=== PATIENT | male | born 1975 | race Caucasian/White ===

== ENCOUNTER 2025-01-08 21:17 | Emergency (ER) | payer MEDICAID, SELFPAY ==
--- NOTE | 2025-01-08 21:26 | ECG_ITS ---
Test Reason : OVERDOSE Blood Pressure : */* mmHG Vent. Rate : 52 BPM Atrial Rate : 52 BPM P-R Int : 164 ms QRS Dur : 86 ms QT Int : 482 ms P-R-T Axes : 40 7 16 degrees QTcB Int : 448 ms Sinus bradycardia Nonspecific T wave abnormality Abnormal ECG No previous ECGs available Referred By: Generic ED Physician Electronically Signed By: JOSE CARLOS IRVING
[2025-01-08 21:29] VITALS: BP 115/70; PULSE 50; O2SAT 96
[2025-01-08 21:30] VITALS: BP 92/55; PULSE 53; RESP 20; TEMP 36.9; O2SAT 99; BMI 34.1
[2025-01-08 21:43] LABS: MANUAL DIFF FLAG NO
[2025-01-08 21:44] LABS: Basophils Percent Auto 0.1 % (0-2); Eosinophils Percent Auto 0.1 % (0-4); Hematocrit 36.8 % (42.0-52.0); Hemoglobin 12.7 g/dl (14.0-18.0); Imm Gran Abs Auto 0.08 X10*3/uL (0.00-0.03); Imm Gran Pct Auto 0.7 % (0.0-0.4); Lymphocytes Percent Auto 18.2 % (20-40); Mean Corpuscular HGB Conc 34.5 g/dl (31.0-36.0); Mean Corpuscular Hemoglobin 29.1 pg (27.0-33.0); Mean Corpuscular Volume 84.4 fL (80.0-98.0); Mean Platelet Volume 11.8 fL (9.4-12.4); Monocytes Absolute Auto 0.7 X10*3/uL (0.1-1.2); Neutrophils Absolute Auto 8.4 x10*3/uL (2.0-8.3); Neutrophils Percent Auto 74.9 % (45-73); Platelet Count 234 X10*3/uL (160-400); Red Blood Count 4.36 X10*6/uL (4.60-5.80); White Blood Count 11.2 X10*3/uL (4.8-10.8)
[2025-01-08] MEDS: 0.9 % Sodium Chloride 1,000 ML 999 ML IV ×2 (21:49)
--- NOTE | 2025-01-08 21:50 | ED_ITS ---
HPI - General Adult General Chief complaint: General Medical Stated complaint: od, 4mg narcan given Time Seen by Provider: 01/08/25 21:31 History of Present Illness HPI narrative: Patient is a 49-year-old male admits to drinking alcohol. Patient was given a prescription for icy opium tincture 10 milligram/mL. He picked that up on January 03. He was prescribed 72 cc. He is supposed to take 0.6 mg orally 4 times a day. Patient was found with an empty bottle next to him. He did get into an argument with his daughter and his prior. He denies suicidal ideation. EMS/police found him unresponsive. He was given Narcan which woke him up. Patient from home. Denies any other medical issues. Related Data Allergies Allergy/AdvReac Type Severity Reaction Status Date / Time gabapentin Allergy Gastrointestinal Verified 01/08/25 21:34 Upset NSAIDS (Non-Steroidal AdvReac Difficulty Verified 01/08/25 21:34 Anti-Inflamma Breathing Review of Systems 2 Review of Systems: Positive altered mental status Yes all other systems are reviewed and are negative [facility] Past Medical History Attestation statement: The following information was validated with the patient. Social History Social History Smoked in Last 30 Days: No Use of substances other than those prescribed or required for medical reasons: No Advance Directives: No Advance Directives Information Provided: Yes Do you have a plan to hurt others: No Plan Physical Exam ED Vital Signs: Vital Signs - 24 hr 01/08/25 21:30 01/08/25 22:15 01/08/25 23:10 Temperature 98.5 F Pulse Rate 53 49 L 45 L Respiratory Rate 20 174 H 19 Blood Pressure 92/55 L 94/61 108/69 Pulse Oximetry 99 97 97 Oxygen Delivery Method Room Air Room Air Room Air 01/09/25 00:10 01/09/25 03:27 01/09/25 05:19 Temperature 98.0 F 99.1 F Pulse Rate 49 L 57 63 Respiratory Rate 16 16 11 L Blood Pressure 102/55 L 95/59 L 102/62 Pulse Oximetry 97 97 98 Oxygen Delivery Method Room Air Room Air Room Air 01/09/25 08:37 Temperature 98.2 F Pulse Rate 67 Respiratory Rate 11 L Blood Pressure 99/72 Pulse Oximetry 96 Oxygen Delivery Method Room Air BMI result Body Mass Index 34.1 Appearance: Alert. Oriented X3. No acute distress. Eyes: Pupils equal, round and reactive to light. ENT: Pharynx normal. Neck: Normal inspection. Neck supple. No lymph nodes noted. No crepitus CVS: Normal heart rate and rhythm. Pulses normal. Normal S1 and S2 Respiratory: No respiratory distress. Breath sounds normal. No Wheezing. No rales Abdomen: Soft and nontender. No rigidity. No distention. good BS x4 Skin: Skin warm and dry. Normal skin color. Normal skin turgor. Extremities: No lower extremity edema. Neurovascular intact to all extremities. No Lacerations. No Rash Neuro: Oriented X 3. No motor deficit. No sensory deficit. Moving all extermities. No slurred speech Course Reevaluation(s) Reevaluation #1: Dr. Mariee: The patient was signed out to me pending the results of a care team evaluation. The patient had apparently seemed to sustain an opioid overdose by using opium tincture that has been prescribed to help reduce his ostomy output. The patient has had a recent colostomy. The patient was medically cleared and seen by the care team. It seems as though the impression is that the patient has overdose was an accidental overdose. The patient is currently denying any intent to harm himself and has no plans to harm himself. The family seems to corroborate this. The patient was therefore cleared by the care team for discharge. The patient seems medically stable at this point. He will be advised to follow up with the his primary care doctor soon as well as his surgeon. Time: 12:35 Medications Administered Discontinued Medications Generic Name Dose Route Start Last Admin Trade Name Freq PRN Reason Stop Dose Admin Sodium Chloride 1,000 mls @ 999 mls/hr 01/08/25 21:45 01/09/25 00:13 Ns IV 01/08/25 22:45 Infused .Q1H1M MILAGROS Infusion Sodium Chloride 1,000 mls @ 999 mls/hr 01/08/25 21:45 01/09/25 00:13 Ns IV 01/08/25 22:45 Infused .Q1H1M MILAGROS Infusion Medical Decision Making Medical Decision Making MDM Narrative: Fair appearing not acute distress. Patient presented today after being found unresponsive by family. EMS gave patient a dose of Narcan which woke him up. Patient was found with a bottle of tincture of opium completely emptied after 4 days. Patient denies he used the drugs. But was found unresponsive. With a pinpoint pupil. He was placed on monitoring. Labs ordered. Will give IV fluids is blood pressure is borderline. In no acute distress. Patient medically cleared. Differential Diagnosis Differential Diagnoses: The differential diagnosis associated with the presentation includes Admission/Observation Consideration of admission/observation: Escalation of care including admission/observation considered Lab Data MDM Lab Attestation statement: I reviewed the patient's lab results. 01/08/25 21:39 01/08/25 21:39 Labs: Lab Results 01/08/25 01/08/25 01/08/25 Range/Units 21:39 22:11 23:00 WBC 11.2 H (4.8-10.8) X10*3/uL RBC 4.36 L (4.60-5.80) X10*6/uL Hgb 12.7 L (14.0-18.0) g/dl Hct 36.8 L (42.0-52.0) % MCV 84.4 (80.0-98.0) fL MCH 29.1 (27.0-33.0) pg MCHC 34.5 (31.0-36.0) g/dl RDW 15.0 (11.0-16.0) % Plt Count 234 (160-400) X10*3/uL MPV 11.8 (9.4-12.4) fL Immature Gran % (Auto) 0.7 H (0.0-0.4) % Neut % (Auto) 74.9 H (45-73) % Lymph % (Auto) 18.2 L (20-40) % [place] % (Auto) 6.0 (2-11) % Eos % (Auto) 0.1 (0-4) % Baso % (Auto) 0.1 (0-2) % Lymph # (Auto) 2.0 (1.2-4.9) X10*3/uL [place] # (Auto) 0.7 (0.1-1.2) X10*3/uL Eos # (Auto) 0.0 (0.0-0.4) X10*3/uL Baso # (Auto) 0.0 (0.0-0.2) X10*3/uL Abs Immat Gran (auto) 0.08 H (0.00-0.03) X10*3/uL Absolute Neuts (auto) 8.4 H (2.0-8.3) x10*3/uL Absolute Nucleated RBC 0.000 (0.0-0.012) X10*3/uL Nucleated RBC % (auto) 0.0 (0.0-0.2) /100WBC Sodium 137 (135-145) mmol/L Potassium 3.5 (3.3-5.1) mmol/L Chloride 102 (96-108) mmol/L Carbon Dioxide 25 (22-29) mmol/L Anion Gap 14 (12-20) BUN 9 (9-16) mg/dL Creatinine 0.74 (0.5-1.4) mg/dL Estim Creat Clear Calc 164.6 Estimated GFR > 60 POC Glucose (60-115) mg/dL Random Glucose 145 H (60-115) mg/dL Calcium 8.5 (8.4-10.2) mg/dL Total Bilirubin 0.3 (0.0-1.0) mg/dL AST 80 H (5-37) U/L ALT 78 H (0-40) U/L Alkaline Phosphatase 97 (39-117) U/L Troponin I High Sens 11.3 (<3.5-35.0) ng/L Total Protein 6.2 L (6.5-8.0) g/dL Albumin 3.3 L (3.5-5.0) g/dL Urine Opiates Screen POSITIVE H (Not Detect) Ur Buprenorphine Scrn Not Detected (Not Detect) ng/mL Ur Oxycodone Screen Not Detected (Not Detect) ng/mL Urine Methadone Screen Not Detected (Not Detect) ng/mL Urine Fentanyl Screen Not Detected (Not Detect) Ur Barbiturates Screen Not Detected (Not Detect) Ur Phencyclidine Scrn Not Detected (Not Detect) Ur Amphetamines Screen Not Detected (Not Detect) U Benzodiazepines Scrn Not Detected (Not Detect) Urine Cocaine Screen Not Detected (Not Detect) U Marijuana (THC) Screen Not Detected (Not Detect) Ethyl Alcohol < 10 mg/dL 01/09/25 Range/Units 08:41 WBC (4.8-10.8) X10*3/uL RBC (4.60-5.80) X10*6/uL Hgb (14.0-18.0) g/dl Hct (42.0-52.0) % MCV (80.0-98.0) fL MCH (27.0-33.0) pg MCHC (31.0-36.0) g/dl RDW (11.0-16.0) % Plt Count (160-400) X10*3/uL MPV (9.4-12.4) fL Immature Gran % (Auto) (0.0-0.4) % Neut % (Auto) (45-73) % Lymph % (Auto) (20-40) % Alexandria % (Auto) (2-11) % Eos % (Auto) (0-4) % Baso % (Auto) (0-2) % Lymph # (Auto) (1.2-4.9) X10*3/uL [place] # (Auto) (0.1-1.2) X10*3/uL Eos # (Auto) (0.0-0.4) X10*3/uL Baso # (Auto) (0.0-0.2) X10*3/uL Abs Immat Gran (auto) (0.00-0.03) X10*3/uL Absolute Neuts (auto) (2.0-8.3) x10*3/uL Absolute Nucleated RBC (0.0-0.012) X10*3/uL Nucleated RBC % (auto) (0.0-0.2) /100WBC Sodium (135-145) mmol/L Potassium (3.3-5.1) mmol/L Chloride (96-108) mmol/L Carbon Dioxide (22-29) mmol/L Anion Gap (12-20) BUN (9-16) mg/dL Creatinine (0.5-1.4) mg/dL Estim Creat Clear Calc Estimated GFR POC Glucose 118 H (60-115) mg/dL Random Glucose (60-115) mg/dL Calcium (8.4-10.2) mg/dL Total Bilirubin (0.0-1.0) mg/dL AST (5-37) U/L ALT (0-40) U/L Alkaline Phosphatase (39-117) U/L Troponin I High Sens (<3.5-35.0) ng/L Total Protein (6.5-8.0) g/dL Albumin (3.5-5.0) g/dL Urine Opiates Screen (Not Detect) Ur Buprenorphine Scrn (Not Detect) ng/mL Ur Oxycodone Screen (Not Detect) ng/mL Urine Methadone Screen (Not Detect) ng/mL Urine Fentanyl Screen (Not Detect) Ur Barbiturates Screen (Not Detect) Ur Phencyclidine Scrn (Not Detect) Ur Amphetamines Screen (Not Detect) U Benzodiazepines Scrn (Not Detect) Urine Cocaine Screen (Not Detect) U Marijuana (THC) Screen (Not Detect) Ethyl Alcohol mg/dL Discharge Plan Discharge Clinical Impression: Accidental overdose Patient Disposition: Home, Self-Care Additional Instructions: Please continue your medications as currently prescribed until you follow up with your regular doctor. Please call your regular doctor's office today for a prompt follow up appointment. Also stay in touch with your surgeon as needed. Return to the emergency room if significantly worse at any time. Referrals: Errol Trevino MD [Physician] - Print Language: Croatian
[2025-01-08 21:58] LABS: Alanine Aminotransferase 78 U/L (0-40); Albumin Level 3.3 g/dL (3.5-5.0); Alkaline Phosphatase 97 U/L (39-117); Anion Gap 14 (12-20); Aspartate Amino Transferase 80 U/L (5-37); Bilirubin Total 0.3 mg/dL (0.0-1.0); Blood Urea Nitrogen 9 mg/dL (9-16); Calcium 8.5 mg/dL (8.4-10.2); Carbon Dioxide 25 mmol/L (22-29); Chloride 102 mmol/L (96-108); Creatinine Clr Calc Pharmacy 164.6; Estimated Glomerular Filt Rate > 60; Glucose Random 145 mg/dL (60-115); Potassium 3.5 mmol/L (3.3-5.1); Sodium 137 mmol/L (135-145); Total Protein 6.2 g/dL (6.5-8.0)
--- NOTE | 2025-01-08 21:58 | MHC.EDTECH ---
Patient changed over belongings placed in [facility] closet shelf 3
[2025-01-08 22:05] LABS: Troponin-I High Sensitivity 11.3 ng/L (<3.5-35.0)
[2025-01-08 22:15] VITALS: BP 94/61; PULSE 49; RESP 174; O2SAT 97
[2025-01-08 22:32] LABS: Ethanol < 10 mg/dL
[2025-01-08 23:10] VITALS: BP 108/69; PULSE 45; RESP 19; O2SAT 97
[2025-01-08 23:16] LABS: Amphetamine Screen Urine Not Detected (Not Detect); Barbiturates, Urine Not Detected (Not Detect); Benzodiazepines Screen Urine Not Detected (Not Detect); Buprenorphine Scr Not Detected (Not Detect); Cannabinoid Screen Urine Not Detected (Not Detect); Cocaine Screen Urine Not Detected (Not Detect); Fentanyl, urine Not Detected (Not Detect); Methadone Screen, Urine Not Detected (Not Detect); Opiate Screen Urine POSITIVE (Not Detect); Oxycodone Screen Urine Not Detected (Not Detect); Phencyclidine Screen Urine Not Detected (Not Detect)
--- NOTE | 2025-01-08 23:32 | PC.NURSE ---
Called poison control at this time, stated only narcan and supportive care . MD boykin
--- OUTSIDE RECORDS SUMMARY | 2025-01-08 23:55 | XMS_ITS | Clinical Summary ---
Author Organization [facility] Address [address] [place] [address] Care Team Providers Care Insulation Board Head Saw Operator Name Role Phone Errol Trevino MD Primary Care Provider [phone] Allergies Active Allergy Reactions Criticality Noted Date Comments Gabapentin Unknown/Patient and Family Unable to Define Medium 05/27/2019 Causes seizures Other reaction(s): Unknown Causes seizures Nsaids Bleeding (Non-Gastrointestinal),O ther (See Comments) High 04/01/2019 Medications topiramate (TOPAMAX) 50 MG tablet Take 1 tablet (50 mg total) by mouth 2 (two) times a day. 1 9 Active OMEprazole (PriLOSEC) 40 MG capsule Take 1 capsule (40 mg total) by mouth. Active Multiple Vitamin (MULTIVITAMIN) capsule Take 1 capsule by mouth. Active tiZANidine (ZANAFLEX) 2 MG tablet Take 1 tablet (2 mg total) by mouth. 9 Active nortriptyline (PAMELOR) 10 MG capsule Take 1 capsule (10 mg total) by mouth nightly. 0 Active albuterol (PROVENTIL HFA; VENTOLIN HFA) 108 (90 Base) MCG/ACT inhaler INHALE 1 PUFF EVERY 6 HOURS NEEDED FOR SHORTNESS OF BREATH/WHEEZI NG 0 Active dicyclomine (BENTYL) 10 MG capsule TAKE ONE CAPSULE BY MOUTH THREE TIMES A DAY NEEDED 0 Active hyoscyamine (LEVBID) 0.375 MG 12 hr tablet Take 1 tablet (375 mcg total) by mouth 2 (two) times a day. 0 Active furosemide (LASIX) 20 MG tablet Take 1 tablet (20 mg total) by mouth. 1 Active diazepam (VALIUM) 5 MG tabletIndications: Anxiety due to invasive procedure Take one tab 1.5 hours prior to procedure. May repeat 30min later prn. 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 2 tablet 2 Active cholestyramine resin (QUESTRAN) 4 g packet DRINK 1 PACKET DISSOLVED IN WATER ONCE A DAY 2 Active buPROPion (WELLBUTRIN XL) 150 MG 24 hr tablet Take 1 tablet (150 mg total) by mouth every morning. 4 Active buPROPion (Wellbutrin XL) 300 MG 24 hr tablet Take 1 tablet (300 mg total) by mouth. 2 Active diphenoxylate-atro pine (LOMOTIL) 2.5-0.025 MG per tablet Take 1 tablet by mouth 3 (three) times a day. 4 Active famotidine (PEPCID) 40 MG tablet Take 1 tablet (40 mg total) by mouth 2 (two) times a day. 3 Active ondansetron (ZOFRAN) 4 MG tablet Take 1 tablet (4 mg total) by mouth 3 times daily (every 8 hours) as needed. for nausea 4 Active phentermine 30 MG capsule Take 1 capsule (30 mg total) by mouth. 3 Active HYDROcodone-acetam inophen (VICODIN) 7.5-300 MG per tablet TAKE ONE TABLET BY MOUTH EVERY 6 HOURS NEEDED FOR BACK PAIN 4 Active propranolol (INDERAL) 80 MG tablet 4 Active famotidine (PEPCID) 20 MG tablet Take 1 tablet (20 mg total) by mouth 2 (two) times a day. 4 Active LORazepam (ATIVAN) 0.5 MG tablet Take 1 tab po 1 hour before medical procedure 4 Active HYDROcodone-acetam inophen (VICODIN) 7.5-300 MG per tablet Take 1 tablet by mouth 4 times daily (every 6 hours) as needed. 4 Active metFORMIN (GLUCOPHAGE-XR) 750 MG 24 hr tablet Take 1 tablet (750 mg total) by mouth. 4 Active ondansetron (ZOFRAN) 4 MG tabletIndications: Generalized abdominal pain Take 1 tablet (4 mg total) by mouth 3 times daily (every 8 hours) as needed for nausea or vomiting. 20 tablet 1 4 Active Creon 18185-978401 units Cap DR Particles capsuleIndications :Pancreatic insufficiency TAKE ONE CAPSULE BY MOUTH THREE TIMES A DAY WITH MEALS 270 capsule 3 4 Active Slow Magnesium/Calcium 64-106 MG tablet Take 1 tablet by mouth. 4 Active spironolactone (ALDACTONE) 50 MG tablet Take 1 tablet (50 mg total) by mouth. Active Mounjaro 7.5 MG/0.5ML pen-injector Inject 1 Pen (7.5 mg total) under the skin over 7 days for 168 hours (continuous infusion). 4 Active acetaminophen-code ine (TYLENOL #4) 300-60 MG per tablet Take 1 tablet by mouth 4 times daily (every 6 hours) as needed. for pain Max Daily Amount: 4 tablets Active ivabradine (CORLANOR) 5 MG tablet Take 1 tablet (5 mg total) by mouth 2 (two) times a day with meals. Active Magnesium Cl-Calcium Carbonate 71.5-119 MG Tablet Delayed Response Take 596 mg by mouth. 4 Active ondansetron (ZOFRAN-ODT) 8 MG disintegrating tablet Take 1 tablet (8 mg total) by mouth 3 times daily (every 8 hours) as needed. 5 Active Active Problems Problem Noted Date Diagnosed Date Elevated hemoglobin A1c 10/21/2024 History of gastric bypass 10/21/2024 Obstructive sleep apnea 10/21/2024 Obesity 10/21/2024 Steatosis of liver 10/21/2024 Paroxysmal tachycardia 08/26/2024 Type 2 diabetes mellitus wit hout complication, without long-term current use of insulin 05/13/2024 Muscle cramping 02/05/2024 Injury of right shoulder 10/24/2023 Prediabetes 07/26/2023 Pancreatic insufficiency 04/05/2023 Pancreatic colipase deficiency 01/09/2023 Diarrhea 11/18/2022 Generalized abdominal pain 09/07/2022 Acute recurrent pancreatitis 04/19/2022 Intractable abdominal pain 02/23/2022 Anxiety and depression 10/25/2021 Water retention 06/09/2021 Palpitations 05/04/2021 SVT (supraventricular tachycardia) 06/03/2020 Sprain of shoulder, left 04/29/2020 Diverticulitis of large inte jared without perforation or abscess without bleeding 02/25/2020 Dyspnea on exertion 02/25/2020 Facet arthritis of lumbar region 12/16/2019 Stenosis of lateral recess of lumbar spine 12/15 Lumbosacral radiculopathy at L3 11/25/2019 History of urinary retention 10/29/2019 Right thigh pain 10/29/2019 Right upper quadrant pain 08/30/2019 Chronic sacroiliac pain 06/05/2019 History of Sim-en-Y gastric bypass 06/05/2019 Overview (10/21/2024): 2011 Karma Spinal stenosis at L4-L5 level 06/05/2019 Sacroiliitis 05/27/2019 Lumbar discogenic pain syndrome 05/27/2019 Low back pain with bilateral sciatica 04/05/2019 Resolved Problems Problem Noted Date Diagnosed Date Resolved Date Colitis 03/15/2022 11/18/2024 Encounter for general adult medical examination without abnormal findings 12/14/2020 Immunizations Immunization Administration Dates Next Due DT 09/23/2007 Influenza (AFLURIA/FLUZONE) Inactivated/Split Quadrivalent with Preservative IM 06/11/2020,07/18/2019,06/27/2018,06/10 Influenza Inactivated/Split Preservative Free IM 06/11/2020,07/18/2019,06/27/2018,06/10 Influenza Virus Trivalent Sp lit Vaccine (MDV) IM 06/11/2020,07/18/2019,06/27/2018,06/10 Influenza, Quadrivalent (FLU ARIX, AFLURIA, FLULAVAL, FLUZONE) Preservative Free IM 06/09/2021,06/11/2020,07/18/2019,06/27 Influenza, Trivalent (FLUARI X, AFLURIA, FLULAVAL, FLUZONE) Preservative Free IM 08/26/2024 Influenza, Unspecified 08/12/2022 Pneumococcal Polysaccharide 23-Valent 10/14/2019 Tdap 11/09/2017 Family History Medical History Relation Name Comments Cancer Father David Pancreatitis Father David Cancer Mother Jazmyne Colon polyps Mother Jazmyne Crohn's disease Mother Jazmyne Colon cancer Paternal Grandfather Relation Name Status Comments Father David Mother Jazmyne Paternal Grandfather Social History Tobacco Use Types Packs/Day Years Used Date Smoking Tobacco: Never Smokeless Tobacco: Never Tobacco Cessation:Counseling Given: Not Answered Alcohol Use Standard Drinks/Week Comments Yes 1 (1 standard drink = 0.6 oz pur e alcohol) socially Sex and Gender Information Value Date Recorded Sex Assigned at Male 07/09/2023 10:13 AM EDT Legal Sex Male 3:46 PM EDT Gender Identity Male 05/22/2024 10:08 AM EDT Sexual Orientation Heterosexual (straight) 07/09 10:13 AM EDT Last Filed Vital Signs Vital Sign Reading Time Taken Comments Blood Pressure 90/60 09/20/2024 8:28 AM EST Pulse 100 02/26/2024 8:32 AM EDT Temperature 37 ??C (98.6 ??F) 09/20/2024 8:28 AM EST Respiratory Rate 18 10/18/2023 9:16 AM EST Oxygen Saturation 97% 12/01/2023 2:56 PM EDT Inhaled Oxygen Concentration - - Weight 132 kg (290 lb 6.4 oz) 09/20/2024 8:28 AM EST Height 188 cm (6' 2 ) 09/20/2024 8:28 AM EST Body Mass Index 37.29 09/20/2024 8:28 AM EST Plan of Treatment Health Maintenance Due Date Last Done Comments Hepatitis C Virus Screening 1974 Creatinine with GFR 02/29/1984 Foot Exam 02/29/1984 Lipid Panel 02/29/1984 Ophthalmology Exam 02/29/1984 HIV Screening 1987 Chronic Controlled Substance Toxicology Screening 02/29/1992 Chronic Controlled Substance User PDMP Review 02/29/1992 Controlled Substance Agreeme nt Initial and Annual Review 02/29/1992 Microalbumin/Creatinine Rati o Urine 02/29/1992 Hepatitis B Vaccines (1 of 3 - 19+ 3-dose series) 1993 Pneumococcal Vaccines 50+ (2 of 2 - PCV) 10/14/2020 10/14/2019 Zoster (Shingles) Vaccine (1 of 2) 02/29/2024 COVID-19 Vaccine (3 - 2023-2 5 season) 2024 11/27/2020, 10/30/2020 Hemoglobin A1C 11/13/2024 05/13/2024, 01/17, 11/02/2023, Additional history exists DTaP/Tdap/Td Vaccines (3 - T d or Tdap) 11/09/2027 11/09/2017, 09/23/2007 Colonoscopy 10/31/2032 10/31/2022 Influenza Vaccine Completed 08/26/2024, , 06/09/2021, Additional history exists Insurance HEALTH Care Teams Insulation Board Head Saw Operator Relationship Specialty Start Date End Date Errol Trevino MD [address] [place] [id number] PCP - General Internal Medicine 07/16/19
--- OUTSIDE RECORDS SUMMARY | 2025-01-08 23:55 | XMS_ITS | Encounter Summary ---
Author Organization [facility] Address [address] [place] [address] Care Team Providers Care Construction Secretary Name Role Phone Errol Trevino MD Primary Care Provider [phone] Errol Trevino MD Primary Care Provider [phone] Encounter Details Date Type Department Care Team (Late st Contact Info) Description 05/27/2019 Scanned Document [facility] [address] [facility] [address] [place] [phone] Levi Hooper MD [address] [place] [address] [address] [place], [place] [id number] Social History Tobacco Use Types Packs/Day Years Used Date Smoking Tobacco: Never Smokeless Tobacco: Never Alcohol Use Standard Drinks/Week Comments Yes 0 (1 standard drink = 0.6 oz pur e alcohol) socially Sex and Gender Information Value Date Recorded Sex Assigned at Male 07/09/2023 10:13 AM EDT Legal Sex Male 3:46 PM EDT Gender Identity Male 05/22/2024 10:08 AM EDT Sexual Orientation Heterosexual (straight) 07/09 10:13 AM EDT documented as of this encounter Plan of Treatment Not on file documented as of this encounter Visit Diagnoses Not on filedocumented in this encounter Care Teams Construction Secretary Relationship Specialty Start Date End Date Errol Trevino MD [address] [place] [phone] PCP - General Internal Medicine 07/09/19 07/09/19 Errol Trevino MD [address] [place] [phone] PCP - General Internal Medicine 07/16/19 documented as of this encounter
--- OUTSIDE RECORDS SUMMARY | 2025-01-08 23:55 | XMS_ITS | Encounter Summary ---
Author Organization [facility] Address [address] [place] [address] Care Team Providers Care Associate Professor Plant Pathology Name Role Phone Errol Trevino MD Primary Care Provider [phone] Encounter Details Date Type Department Care Team (Late st Contact Info) Description 06/03/2024 Scanned Document [facility] [address] [facility] [address] [place] [phone] Keven Peterson MD [address] [facility] [address] [place] [address] Social History Tobacco Use Types Packs/Day Years Used Date Smoking Tobacco: Never Smokeless Tobacco: Never Alcohol Use Standard Drinks/Week Comments Yes 1 [...] on filedocumented in this encounter Care Teams Associate Professor Plant Pathology Relationship Specialty Start Date End Date Errol Trevino MD [address] [place] [id number] PCP - General Internal Medicine 07/16/19 documented as of this encounter
--- OUTSIDE RECORDS SUMMARY | 2025-01-08 23:55 | XMS_ITS | Encounter Summary ---
Author Organization [facility] Address [address] [place] [address] Care Team Providers Care Edge Gluer Name Role Phone Errol Trevino MD Primary Care Provider [phone] Encounter Details Date Type Department Care Team (Late st Contact Info) Description 07/11/2019 Scanned Document [facility] Neurosurgery [address] [phone] Dewayne Deleon MD [address] [place] [address] [place] [address] Social History Tobacco Use Types Packs/Day Years [...] on filedocumented in this encounter Care Teams Edge Gluer Relationship Specialty Start Date End Date Errol Trevino MD [address] [place] [phone] PCP - General Internal Medicine 07/16/19 documented as of this encounter
--- OUTSIDE RECORDS SUMMARY | 2025-01-08 23:55 | XMS_ITS | Encounter Summary ---
Author Organization [facility] Address [address] [place] [address] Care Team Providers Care Scrap Sorter Name Role Phone Errol Trevino MD Primary Care Provider [phone] Encounter Details Date Type Department Care Team ([facility] st Contact Info) Description 12/23/2022 Telephone [facility] [address] [phone] Thony Liu 65 [facility] [address] [place] [phone] Social History Tobacco Use Types Packs/Day Years [...] AM EDT documented as of this encounter Miscellaneous Notes * Telephone Encounter - Thony Liu - 12/23/2022 8:27 AM EDT Pt messaged in via zhen and would like to look into another injection as soon as possible. Please advise, thank you! documented in this encounter Plan of Treatment Not on file documented as of this encounter Visit Diagnoses Not on filedocumented in this encounter Care Teams Scrap Sorter Relationship Specialty Start Date End Date Errol Trevino MD [address] [place] [phone] PCP - General Internal Medicine 07/16/19 documented as of this encounter
--- OUTSIDE RECORDS SUMMARY | 2025-01-08 23:55 | XMS_ITS | Encounter Summary ---
Author Organization [facility] Address [address] [place] [address] Care Team Providers Care Environmental Science Instructor Name Role Phone Errol Trevino MD Primary Care Provider [phone] Encounter Details Date Type Department Care Team (Late st Contact Info) Description 06/03/2024 Scanned Document [facility] 85 [facility] [address] [place] [phone] Keven Peterson MD 85 [facility] [address] [place] [address] Social History Tobacco Use Types Packs/Day Years [...] on filedocumented in this encounter Care Teams Environmental Science Instructor Relationship Specialty Start Date End Date Errol Trevino MD [address] [place] [id number] PCP - General Internal Medicine 07/16/19 documented as of this encounter
--- OUTSIDE RECORDS SUMMARY | 2025-01-08 23:55 | XMS_ITS ---
Author Name [facility] Organization Unknown History of Medication Use Medication Directions Dispensed Refills Start Date End Date Stat us amoxicillin-clavulan ate (AUGMENTIN) 875-125 MG per tablet Take by mouth. 09/13/2024 5 active Slow Magnesium/Calcium 64-106 MG tablet Take 1 tablet by mouth. 08/30/2024 active Creon [address]95-694711 units Cap DR Particles capsule TAKE ONE CAPSULE BY MOUTH THREE TIMES A DAY WITH MEALS 06/03/2024 active metFORMIN (GLUCOPHAGE-XR) 750 MG 24 hr tablet Take 750 mg by mouth. 11/01/2023 active metFORMIN (GLUCOPHAGE-XR) 500 MG 24 hr tablet Take 750 mg by mouth. 10/17/2023 active metFORMIN (GLUCOPHAGE-XR) 500 MG 24 hr tablet Take 500 mg by mouth. 10/17/2023 active buPROPion (WELLBUTRIN XL) 150 MG 24 hr tablet Take 150 mg by mouth every morning. 09/27/2023 active metFORMIN (GLUCOPHAGE-XR) 500 MG 24 hr tablet TAKE ONE TABLET BY MOUTH EVERY DAY WITH DINNER 09/20/2023 active famotidine (PEPCID) 40 MG tablet Take 40 mg by mouth 2 (two) times a day. 08/30/2023 active sodium chloride 0.9% (NS) infusion 75 mL/hr, Intravenous, Continuous, Starting on 10/31/22 at 1330, Pre-Procedure (GI) 10/31/2022 active cholestyramine resin (QUESTRAN) 4 g packet DRINK 1 PACKET DISSOLVED IN WATER ONCE A DAY 04/11/2022 2 active Wegovy 1.7 MG/0.75ML Solution Auto-injector INJECT 0.75 ML (1.7 MG TOTAL) SUBCUTANEOUSLY EVERY 7 DAYS 12/16/2021 5 active dicyclomine (BENTYL) 10 MG capsule TAKE ONE CAPSULE BY MOUTH THREE TIMES A DAY NEEDED 04/15/2020 active HYDROcodone-acetamin ophen (NORCO) 10-325 mg per tablet Take 1 tablet by mouth 4 times daily (every 6 hours) as needed. for pain 10/02/2019 4 active tiZANidine (ZANAFLEX) 2 MG tablet Take 1 tablet by mouth. 07/30/2019 active predniSONE (DELTASONE) 10 MG tablet 04/06/2019 4 active phentermine 30 MG capsule Take 30 mg by mouth. 03/12/2019 02 4 active OMEprazole (PriLOSEC) 40 MG capsule Take 40 mg by mouth. acti ve spironolactone (ALDACTONE) 50 MG tablet Take 1 tablet (50 mg total) by mouth. active Problems Problem Status Onset Date Problem Type Date of Resoluti on Source Low back pain with bilateral sciatica active 2019-04-05 ProblemAct [facility] Sacroiliitis active 2019-05-27 ProblemAct [facility] Generalized abdominal pain active 2022-09-07 ProblemAct [facility] Diverticular disease active EncounterDiagnosisA ct [facility] Facet arthritis of lumbar region active 2019-12-16 ProblemAct [facility] Stenosis of lateral recess of lumbar spine active 2019-12-16 ProblemAct [facility] Diarrhea active 2022-11-18 ProblemAct [facility] Lumbar discogenic pain syndrome active 2019-05-27 ProblemAct [facility] Immunizations Vaccine Date Source Lot Number Status Influenza, Unspecified 08/12/2022 [facility] co mpleted Influenza, Quadrivalent (FLU ARIX, AFLURIA, FLULAVAL, FLUZONE) Preservative Free IM 06/09/2021 [facility] [id number] completed Influenza (AFLURIA/FLUZONE) Inactivated/Split Quadrivalent with Preservative IM 06/11/2020 [facility] UNK completed Influenza Inactivated/Split Preservative Free IM 06/11/2020 [facility] UNK completed Influenza, Quadrivalent (FLU ARIX, AFLURIA, FLULAVAL, FLUZONE) Preservative Free IM 06/11/2020 [facility] completed Pneumococcal Polysaccharide 23-Valent 10/14/2019 [facility] [id number] completed Influenza (AFLURIA/FLUZONE) Inactivated/Split Quadrivalent with Preservative IM 07/18/2019 [facility] UNK completed Influenza Inactivated/Split Preservative Free IM 07/18/2019 [facility] UNK completed Influenza, Quadrivalent (FLU ARIX, AFLURIA, FLULAVAL, FLUZONE) Preservative Free IM 07/18/2019 [facility] completed Influenza (AFLURIA/FLUZONE) Inactivated/Split Quadrivalent with Preservative IM 06/27/2018 [facility] UNK completed Influenza Inactivated/Split Preservative Free IM 06/27/2018 [facility] UNK completed Influenza, Quadrivalent (FLU ARIX, AFLURIA, FLULAVAL, FLUZONE) Preservative Free IM 06/27/2018 [facility] completed Tdap 11/09/2017 [facility] [id number] completed Influenza (AFLURIA/FLUZONE) Inactivated/Split Quadrivalent with Preservative IM 06/10/2016 [facility] UNK completed Influenza Inactivated/Split Preservative Free IM 06/10/2016 [facility] UNK completed DT 09/23/2007 [facility] [id number] completed Encounters Encounter Type Encounter Reason Primary Diagnosis Location Date Ambulatory Diverticulosis of intestine, part unspecified, without perforation or abscess without bleeding Diverticulosis of intestine, part unspecified, without perforation or abscess without bleeding [facility] 09/20/2024 [facility]ulatory [facility]24 Amb[facility] Abdominal Pain Abdominal Pain [facility] 02/26/2024 Ambulatory Generalized abdomina l pain Generalized abdominal pain [facility] 01/10/2024 Ambulatory Other specified abnormal findings of blood chemistry Other specified abnormal findings of blood chemistry [facility] 12/13/2023 Ambulatory Diarrhea, unspecified Diarrhea, unspecifi ed [facility] 12/01/2023 Ambulatory Sacroiliitis, not elsewhere classified Sacroiliitis, not elsewhere classified [facility] 10/18/2023 Ambulatory Sacroiliitis, not elsewhere classified Sacroiliitis, not elsewhere classified [facility] 09/29/2023 Ambulatory Diarrhea, unspecified [facility] 11/18/2022 Ambulatory Generalized abdo parul pain [facility] 10/31/2022 Ambulatory GENERALIZED ABDOMINA L PAIN GENERALIZED ABDOMINAL PAIN [facility] 10/26/2022 Ambulatory Generalized abdo parul pain [facility] 09/07/2022 Ambulatory Radiculopathy, l umbar region [facility] 09/02/2022 Ambulatory Radiculopathy, l [facility] 08/17/2022 Ambulatory Radiculopathy, l [facility] 05/24/2022 Ambulatory Radiculopathy, l [facility] 03/24/2022 Ambulatory Radiculopathy, l [facility] 12/24/2021 Ambulatory Radiculopathy, [facility] 07/01/2021 Care Team Organization Name Specialty Phone Email Start Date End [facility] NON DKH NON DKH PROVIDER Primary Care 12/13/2023 [facility] 12/06/2023 03/17/2024 [facility] 12/06/2023 [facility]IQUIS CLEMENTS Primary Care 10/26/2022 10/26/2022 [facility] CLEMENTS Primary Care 10/26/2022 [facility] CHIQUIS CLEMENTS Primary Care 08/17/2022 12/04/2024 [facility] Chiquis Clemnets Primary Care 07/01/2021 05/24/2022
--- OUTSIDE RECORDS SUMMARY | 2025-01-08 23:55 | XMS_ITS | Encounter Summary ---
Author Organization [facility] Address [address] [place] [address] Care Team Providers Care Contracting Support Specialist Name Role Phone Errol Trevino MD Primary Care Provider [phone] Encounter Details Date Type Department Care Team (Late st Contact Info) Description 06/03/2024 Scanned Document [address] [facility] 85 [facility] [address] [place] [phone] Keven Peterson MD 85 [facility] [address] [place] [address] Social History Tobacco Use Types Packs/Day Years [...] on filedocumented in this encounter Care Teams Contracting Support Specialist Relationship Specialty Start Date End Date Errol Trevino MD [address] [place] [id number] PCP - General Internal Medicine 07/16/19 documented as of this encounter
--- OUTSIDE RECORDS SUMMARY | 2025-01-08 23:55 | XMS_ITS | Encounter Summary ---
Author Organization [facility] Address [address] [place] [address] Care Team Providers Care Zinc Miner Name Role Phone Errol Trevino MD Primary Care Provider [phone] Encounter Details Date Type Department Care Team ([facility] Contact Info) Description 10/31/[address] [facility] 10 [facility] [address] [place] [address] Keven Peterson MD 85 [facility] [address] [place] [address] Social History Tobacco Use Types Packs/Day Years [...] Orientation Heterosexual (straight) 07/09 10:13 AM EDT COVID-19 Exposure Response Date Recorded In the last 10 days, have yo u been in contact with someone who was confirmed or suspected to have Coronavirus/COVID-19? No / Unsure 10/31/2022 1:18 PM EST documented as of this encounter Plan of Treatment Not on file documented as of this encounter Procedures Procedure Name Priority Date/Time Associated Diagnosis Comments PATHOLOGY REPORT 10/31/2022 12:0 0 AM EST documented in this encounter Results * PATHOLOGY REPORT (10/31/2022 12:00 AM EST) us Keven Peterson MD PATHOLOGY/CYTOLOGY ORDERABL ES Final Result documented in this encounter Visit Diagnoses Not on filedocumented in this encounter Care Teams Zinc Miner Relationship Specialty Start Date End Date Errol Trevino MD [address] [place] [address] PCP - General Internal Medicine 07/16/19 documented as of this encounter
--- OUTSIDE RECORDS SUMMARY | 2025-01-08 23:55 | XMS_ITS | Encounter Summary ---
Author Organization [facility] Address [address] [place] [address] Care Team Providers Care Metal Technician Name Role Phone Errol Trevino MD Primary Care Provider [phone] Encounter Details Date Type Department Care Team (Late st Contact Info) Description 10/30/2019 Scanned Document [facility] [place] 85 [facility] [address] [place] [phone] Dewayne Deleon MD 85 [facility] [address] [place] [phone] Social History Tobacco Use Types Packs/Day Years [...] on filedocumented in this encounter Care Teams Metal Technician Relationship Specialty Start Date End Date Errol Trevino MD [address] [place] [id number] PCP - General Internal Medicine 07/16/19 documented as of this encounter
--- OUTSIDE RECORDS SUMMARY | 2025-01-08 23:55 | XMS_ITS | Encounter Summary ---
Author Organization [facility] Address [address] [place] [address] Care Team Providers Care Finisher [employer] Name Role Phone Errol Trevino MD Primary Care Provider [phone] Encounter Details Date Type Department Care Team (Late st Contact Info) Description 10/31/2019 Scanned Document [facility] [address] [place] [phone] Holland Barrett MD Needs Valid Address Social History Tobacco Use Types Packs/Day Years [...] on filedocumented in this encounter Care Teams Finisher [employer]ion Relationship Specialty Start Date End Date Errol Trevino MD [address] [place] [phone] PCP - General Internal Medicine 07/16/19 documented as of this encounter
[2025-01-09 00:10] VITALS: BP 102/55; PULSE 49; RESP 16; TEMP 36.7; O2SAT 97
[2025-01-09 03:27] VITALS: BP 95/59; PULSE 57; RESP 16; O2SAT 97
[2025-01-09 05:19] VITALS: BP 102/62; PULSE 63; RESP 11; TEMP 37.3; O2SAT 98
[2025-01-09 08:37] VITALS: BP 99/72; PULSE 67; RESP 11; TEMP 36.8; O2SAT 96
[2025-01-09 08:45] LABS: Glucose, Whole Blood 118 mg/dL (60-115)
--- NOTE | 2025-01-09 10:49 | PC.NURSE ---
CARE team meeting with pt. Parents at bedside
[2025-01-09 12:35] VITALS: BP 127/79; PULSE 66; RESP 18; O2SAT 97
[2025-01-09 12:58] VITALS: BP 127/79; PULSE 66; RESP 18; TEMP 36.8; O2SAT 97
== END 2025-01-09 13:08 | disposition home or self-care (01) ==
PROVIDERS: Emergency Provider Emergency Medicine Emergency Medical Services; PCP Internal Medicine
DX: T40.0X1A Poisoning by opium, accidental (unintentional), initial encounter (principal); R40.4 Transient alteration of awareness; Y92.9 Unspecified place or not applicable; Z93.3 Colostomy status; Z79.899 Other long term (current) drug therapy
CPT/HCPCS: 36415; 80053; 80307; 82947; 84484; 85025; 93005; 96360; 96361; 99284; 99285; S9485

== ENCOUNTER → 2025-01-08 21:26 | Outpatient (BNV) | payer MEDICAID, SELFPAY | PROVIDERS: Emergency Provider Emergency Medicine Emergency Medical Services; PCP Internal Medicine; Visit Provider Internal Medicine | DX: R00.1 Bradycardia, unspecified (principal) | CPT/HCPCS: 93010 ==